=== PATIENT | female | born 1965 | race Caucasian/White ===

== ENCOUNTER → 2024-04-22 14:28 | Outpatient (BNVA) | payer OTHER, SELFPAY | PROVIDERS: Referring Provider Nurse Practitioner Family; Visit Provider Nurse Practitioner Family | DX: S96.912A Strain of unspecified muscle and tendon at ankle and foot level, left foot, initial encounter (principal); M77.32 Calcaneal spur, left foot | CPT/HCPCS: 73610 ==

== ENCOUNTER → 2024-04-27 14:58 | Outpatient (BNVA) | payer OTHER, SELFPAY | PROVIDERS: Visit Provider Nurse Practitioner | DX: I10 Essential (primary) hypertension (principal); S96.912D Strain of unspecified muscle and tendon at ankle and foot level, left foot, subsequent encounter; X58.XXXA Exposure to other specified factors, initial encounter | CPT/HCPCS: 80053; 80061; 84443; 85025 ==

== ENCOUNTER 2024-05-05 11:38 | Outpatient (CLI) | payer OTHER, SELFPAY | END 2024-05-05 11:39 | disposition home or self-care (01) | LOC: SPT 11:38 | PROVIDERS: Visit Provider Podiatrist Foot & Ankle Surgery | DX: Z46.89 Encounter for fitting and adjustment of other specified devices (principal); M76.72 Peroneal tendinitis, left leg; M25.372 Other instability, left ankle; S93.402D Sprain of unspecified ligament of left ankle, subsequent encounter; X58.XXXD Exposure to other specified factors, subsequent encounter | CPT/HCPCS: 97760; L1902 ==

== ENCOUNTER 2024-06-04 10:56 | Outpatient (CLI) | payer OTHER, SELFPAY ==
--- NOTE | 2024-06-04 11:00 | MM_ITS ---
WS: [id number] SCREENING DIGITAL BREAST TOMOSYNTHESIS MAMMOGRAM WITH CAD HISTORY: Z12.39 - Encounter for other screening for malignant neop... COMPARISON: None available. Bilateral CC and MLO with tomosynthesis and synthetic mammography submitted. Computer aided detection analyzed. Breast composition: There are scattered areas of fibroglandular density. Benign scattered calcificati ons LEFT breast. Very limited pectoralis muscle is included. Partially visualized mass adjacent to t he posterior chest wall measures 5 mm. This is seen only on the RIGHT MLO projection. There are additional masses in the upper outer quadrant of the RIGHT breast at a posterior depth whic h are probably lymph nodes. These masses are adjacent to one another with the largest measuring 8 x 4 x 4 mm. MM/MM [facility] tomosynthesis [id number] IMPRESSION: BI-RADS: 0 - Incomplete: Need additional imaging evaluation. FOLLOW UP: Need Additional Imaging 1. Recommend ultrasound evaluation RIGHT upper outer quadrant. There are 2 adj acent masses which are probably lymph nodes. With no prior studies for comparis on ultrasound should be obtained. 2. Repeat bilateral MLO imaging with better inclusion of the pectoralis muscles and to further evaluate the incompletely visualized mass RIGHT breast against the chest wall. Recommend exaggerated lateral RIGHT cc, ML and better positioni ng of the RMLO.
== END 2024-06-04 10:57 | disposition home or self-care (01) ==
LOC: MOBLMAM 10:58
PROVIDERS: PCP Nurse Practitioner; Visit Provider Nurse Practitioner
DX: Z12.31 Encounter for screening mammogram for malignant neoplasm of breast (principal); R92.1 Mammographic calcification found on diagnostic imaging of breast; N63.11 Unspecified lump in the right breast, upper outer quadrant; R92.323 Mammographic fibroglandular density, bilateral breasts
CPT/HCPCS: 77063; 77067